=== PATIENT | male | born 1960 | race Caucasian/White ===

== ENCOUNTER 2020-04-05 13:57 | Observation (INO) ==
[2020-04-05] MEDS ORDERED: *HR* OxyCODONE Immed Rel 5 MG TABLET PO PRN (14:19)
[2020-04-05] MEDS ORDERED: Pregabalin 75 MG CAPSULE PO ONE (14:19)
[2020-04-05] MEDS ORDERED: Acetaminophen IV 1,000 MG/100 ML BAG IVPB ONE (14:19)
[2020-04-05] MEDS ORDERED: Famotidine 20 MG/2 ML VIAL IVP ONE (14:19)
[2020-04-05] MEDS ORDERED: *HR* HYDROmorphone 2 MG TABLET PO PRN (14:19)
[2020-04-05] MEDS ORDERED: *HR* Promethazine 25 MG/ML VIAL IVP PRN (14:19)
[2020-04-05] MEDS ORDERED: *HR* Labetalol 20 MG/4 ML SYRINGE IVP PRN (14:19)
[2020-04-05] MEDS ORDERED: *HR* HYDROmorphone (PF) 1 MG/ML SYRINGE IVP PRN (14:19)
[2020-04-05] MEDS ORDERED: CeFAZolin Syr 3,000MG/30 ML 3,000 MG/30 ML SYRINGE IVPB ONE (14:20)
[2020-04-05] MEDS ORDERED: Ringers Solution, Lactated 1,000 ML IVC SCH (14:30)
[2020-04-05] MEDS ORDERED: *HR* LORazepam 1 MG TABLET PO ONE (14:45)
[2020-04-05] MEDS ORDERED: CeFAZolin Syr 2,000MG/20 ML 2,000 MG/20 ML SYRINGE IVPB ONE (14:53)
[2020-04-05] MEDS ORDERED: *HR* Propofol 200 MG/20 ML VIAL IVP ONE ×3 (15:44→17:08)
[2020-04-05] MEDS ORDERED: Ondansetron 4 MG/2 ML VIAL ONE (15:44)
[2020-04-05] MEDS ORDERED: Lidocaine -MPF 2% 2 ML VIAL ONE (15:44)
[2020-04-05] MEDS ORDERED: Dexamethasone 4 MG/ML VIAL ONE (15:44)
[2020-04-05] MEDS ORDERED: Lidocaine 1% 20 ML MDV ONE (15:46)
[2020-04-05] MEDS ORDERED: Bupivacaine/EPI 1:200k 0.25%PF 30 ML VIAL ONE (15:46)
[2020-04-05] MEDS ORDERED: Lidocaine/EPI 1:100k 1% 20 ML VIAL ONE (16:05)
[2020-04-05] MEDS ORDERED: *HR* FentaNYL (PF) 100 MCG/2 ML VIAL ONE ×2 (16:45→17:13)
[2020-04-05] MEDS ORDERED: *HR* Midazolam HCl 2 MG/2 ML VIAL ONE (16:45)
[2020-04-05] MEDS ORDERED: *HR* HYDROMORPHONE 2 MG/ML VIAL ONE (17:18)
[2020-04-05] MEDS ORDERED: Naloxone 0.4 MG/ML INJ IVP PRN (23:11)
[2020-04-05] MEDS ORDERED: Acetaminophen 325 MG TABLET PO PRN (23:11)
[2020-04-05] MEDS: 0.9 % Sodium Chloride 1,000 ML IVC SCH (23:38)
[2020-04-06 05:10] LABS: Prothrombin Time 11.2 Seconds (9.4-12.1)
[2020-04-06 05:16] LABS: Basophils % 0.3 %; Hematocrit 37.8 % (37.5-50.1); Hemoglobin 12.6 g/dL (12.9-16.9); Immature Granulocytes % 0.2 % (0-4); Lymphocytes # 0.5 K/mcL (0.6-4.6); Lymphocytes % 7.7 %; Mean Corpuscular HGB Conc 33.3 g/dL (31.6-35.5); Mean Corpuscular Hemoglobin 28.2 pg (28.0-33.3); Mean Corpuscular Volume 84.6 fL (83.0-100.0); Mean Platelet Volume 10.3 fL (9.4-12.4); Monocytes # 0.2 K/mcL (0.0-1.3); Monocytes % 2.6 %; Neutrophils # 5.9 K/mcL (1.6-8.9); Platelet Count 247 K/mcL (140-400); Red Blood Count 4.47 M/mcL (4.19-5.50); Red Cell Distribution Width 12.9 % (11.5-14.5); Segmented Neutrophils % 89.2 %; White Blood Count 6.7 K/mcL (4.3-11.1)
[2020-04-06 05:23] LABS: BUN/Creatinine Ratio 18 (6-26); Blood Urea Nitrogen 22 mg/dL (8-23); Calcium 9.2 mg/dL (8.6-10.3); Carbon Dioxide 22 mEq/L (23-29); Chloride 106 mEq/L (98-107); Glucose 134 mg/dL (70-105); Magnesium 1.8 mg/dL (1.6-2.6); Osmolality,Calculated 289 (280-300); Potassium 4.6 mEq/L (3.5-5.1); Sodium 137 mEq/L (136-145); eGFR For African Americans > 60 (> 60); eGFR For Non-African Americans > 60 (> 60)
[2020-04-06 07:18] VITALS: BP 130/71
[2020-04-06] MEDS: 0.9 % Sodium Chloride 1,000 ML IVC SCH (08:39)
== END 2020-04-06 11:56 | disposition home or self-care (01) ==
LOC: 3BNU 13:57 → SAMDAY 13:57 → 3BNU 21:43 → SUATTDRO 23:23
PROVIDERS: ADMIT Student in an Organized Health Care Education/Training Program; ATTEND Internal Medicine
PROC: [UNRECOGNIZED PROCEDURE] (2020-04-05 16:35)